=== PATIENT | female | born 1990 | race Caucasian/White ===

== ENCOUNTER → 2017-04-11 | Outpatient (CLI) | payer OTHER ==
[~2017-04-11] MED LIST: COLA100C5 PO; FERR325T3 PO; PRENTAB9 PO
--- NOTE | 2017-04-11 14:40 | REP ---
LEFT BREAST ULTRASOUND: Real-time sonographic evaluation of left breast performed. Reportedly, the patient has had a palpable abnormality in the left axillary tail region. Reportedly, she has had an ultrasound in [place] approximately 6 months ago, but that study is unavailable for comparison. In the left axillary tail region, there is dense fibroglandular tissue. There are a few mildly dilated ducts near the nipple. There is a lymph node in the left axillary tail with an echogenic hilum. This measures 1.8 x 0.7 x 0.9 cm. No other cystic or solid nodule is seen. IMPRESSION: ACR 3 probably benign. In the left axillary tail, there appears to be a lymph node 1.8 x 0.7 x 0.9 cm. This is probably benign. Recommend followup ultrasound in 6 months. Signed by Guido Hyatt MD 04/11/2017 03:18 P
== END ==
LOC: M RAD 10:29
PROVIDERS: ATTEND Midwife
DX: O26.92 Pregnancy related conditions, unspecified, second trimester (principal); N63 Unspecified lump in breast; Z3A.23 23 weeks gestation of pregnancy

== ENCOUNTER 2017-06-12 18:00 | Outpatient (CLI) | payer OTHER ==
[~2017-06-12] VITALS: Ht 165.1 cm; Wt 101.0 kg
[2017-06-12] MEDS ORDERED: FERR325T3 PO (18:25)
[2017-06-12] MEDS ORDERED: PRENTAB9 PO (18:25)
[2017-06-12] MEDS ORDERED: COLA100C5 PO (18:25)
[2017-06-12 18:31] VITALS: BP 96/56
[2017-06-12 19:25] LABS: MEAN CORPUSCULAR HGB CONC 33.2 g/dl (32.0-36.5); MEAN CORPUSCULAR VOLUME 87.3 fl (80.0-96.0); PLATELET COUNT, AUTOMATED 291 10^3/uL (150-450); RED CELL DISTRIBUTION WIDTH 14.4 % (11.5-14.5); WHITE BLOOD COUNT 12.4 10^3/uL (4.0-10.0)
[2017-06-12 19:54] LABS: ALBUMIN 2.6 GM/DL (3.2-5.2); ALKALINE PHOSPHATASE 114 U/L (45-117); ALT/SGPT 15 U/L (12-78); AMYLASE 74 U/L (25-115); ANION GAP 9 MEQ/L (8-16); AST/SGOT 12 U/L (15-37); BILIRUBIN,TOTAL 0.2 MG/DL (0.2-1.0); BLOOD UREA NITROGEN 5 MG/DL (7-18); CALCIUM LEVEL 8.6 MG/DL (8.5-10.1); CARBON DIOXIDE LEVEL 24 MEQ/L (21-32); CHLORIDE LEVEL 107 MEQ/L (98-107); CREATININE FOR GFR 0.43 MG/DL (0.55-1.02); GLOMERULAR FILTRATION RATE > 60.0 (>60); GLUCOSE, FASTING 94 MG/DL (70-105); POTASSIUM SERUM 3.7 MEQ/L (3.5-5.1); SODIUM LEVEL 140 MEQ/L (136-145); TOTAL PROTEIN 6.3 GM/DL (6.4-8.2)
== END 2017-06-12 20:20 | disposition home or self-care (01) ==
LOC: M LDO 18:00
PROVIDERS: ATTEND Obstetrics & Gynecology
DX: O26.899 Other specified pregnancy related conditions, unspecified trimester (principal); M54.9 Dorsalgia, unspecified; R10.9 Unspecified abdominal pain; Z3A.33 33 weeks gestation of pregnancy

== ENCOUNTER 2017-07-04 18:33 | Outpatient (CLI) | payer OTHER ==
[~2017-07-04] VITALS: Ht 165.1 cm; Wt 108.5 kg
[2017-07-04 18:53] VITALS: BP 115/62
--- NOTE | 2017-07-05 01:20 | IPNPDOC ---
Text Note Date of Service The patient was seen on 07/05/17. NOTE Saba is a 26yo with SIUP at 36w1d presenting for loss of fluid. She states that earlier in the night she had an episode of clear leaking of fluid from her vagina. The leaking did not continue, but did "soak the underwear and pants and sofa". She notes good movement. She feels regular ctx. No vaginal bleeding. No fevers/chills. 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 Reassuring status with normal vital signs. Plan: -Discharge to home -Keep next scheduled OB appt Jul at 38wk -Discussed return precautions Dr. Mariangel Cevallos MD [facility] VS,Kevin, I+O VSKevin, I+O Vital Signs Date Time Temp Pulse Resp B/P (MAP) Pulse Ox O2 Delivery O2 Flow Rate FiO2 07/04/17 18:53 99.0 114 18 115/62 (79) Mariangel Cevallos MD Jul 05, 2017 01:20
== END 2017-07-05 01:10 | disposition home or self-care (01) ==
LOC: M LDO 18:33
PROVIDERS: ATTEND Obstetrics & Gynecology
DX: O47.03 False labor before 37 completed weeks of gestation, third trimester (principal); Z3A.36 36 weeks gestation of pregnancy; N89.8 Other specified noninflammatory disorders of vagina; O26.893 Other specified pregnancy related conditions, third trimester

== ENCOUNTER 2017-07-08 22:45 | Outpatient (CLI) | payer OTHER ==
[~2017-07-08] VITALS: Ht 165.1 cm; Wt 106.5 kg
[2017-07-08 23:05] VITALS: BP 127/74
--- NOTE | 2017-07-09 00:24 | IPNPDOC ---
Text Note Date of Service The patient was seen on 07/09/17. NOTE Saba is a 26yo with SIUP at 36w6d who presents for contractions. She states she was feeling them stronger earlier today, but now they seem to have spaced out and are not quite as strong. No LOF, No VB, feels good movement currently. 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 Vitals wnl. Reassuring status. Plan: -Routine OB care, keep next scheduled visit -Discussed return precautions -Safe for discharge Dr. Mariangel Cevallos MD [facility] VS,Kevin, I+O VS, Kevin, I+O Vital Signs Date Time Temp Pulse Resp B/P (MAP) Pulse Ox O2 Delivery O2 Flow Rate FiO2 07/08/17 23:05 99.0 103 18 127/74 (91) Mariangel Cevallos MD Jul 09, 2017 00:24
== END 2017-07-09 00:27 | disposition home or self-care (01) ==
LOC: M LDO 22:45
PROVIDERS: ATTEND Obstetrics & Gynecology
DX: O47.03 False labor before 37 completed weeks of gestation, third trimester (principal); Z3A.36 36 weeks gestation of pregnancy; O36.8130 Decreased fetal movements, third trimester, not applicable or unspecified

== ENCOUNTER 2017-07-12 20:54 | Outpatient (CLI) | payer OTHER ==
--- NOTE | 2017-07-13 01:25 | IPNPDOC ---
Text Note Date of Service The patient was seen on 07/12/17. NOTE Saba is a 26yo with SIUP at 37w3d presenting for loss of fluid. She states that earlier in the night she had an episode of clear leaking of fluid from her vagina. The leaking did not continue, but did "soak the underwear and pants and socks and shoes." Notably, she was seen in triage on June 03 for similar episode with negative workup and then on 08 July she presented for negative labor check. She notes good movement. She feels irregular ctx. No vaginal bleeding. No fevers/chills. 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 Reassuring status with normal vital signs. Plan: -Discharge to home -urine was concentrated: patient strongly counseled to increase hydration -Keep next scheduled OB appt Jul at 38wk -Discussed return precautions MD Aylin Vasquez Katrina D MD Jul 13, 2017 01:25
== END 2017-07-12 22:00 | disposition home or self-care (01) ==
LOC: M LDO 20:54
PROVIDERS: ATTEND Obstetrics & Gynecology
DX: O47.1 False labor at or after 37 completed weeks of gestation (principal); Z3A.37 37 weeks gestation of pregnancy; N89.8 Other specified noninflammatory disorders of vagina; O26.893 Other specified pregnancy related conditions, third trimester

== ENCOUNTER 2017-08-02 09:39 | Inpatient (IN) | payer OTHER ==
[~2017-08-02] VITALS: Ht 165.1 cm; Wt 109.9 kg
[2017-08-02] VITALS (22 sets, daily range): BP systolic 101–134; BP diastolic 60–85
[2017-08-02] MEDS ORDERED: ACET50TA PO (10:08)
[2017-08-02] MEDS ORDERED: LACTATED RINGER'S 1000 ML IV STA (12:42)
[2017-08-02] MEDS ORDERED: LR 1,000 ML IV SCH (12:42)
[2017-08-02 13:25] LABS: MEAN CORPUSCULAR HGB CONC 32.8 g/dl (32.0-36.5); MEAN CORPUSCULAR VOLUME 85.2 fl (80.0-96.0); PLATELET COUNT, AUTOMATED 361 10^3/uL (150-450); RED CELL DISTRIBUTION WIDTH 14.9 % (11.5-14.5); WHITE BLOOD COUNT 16.2 10^3/uL (4.0-10.0)
[2017-08-02] MEDS ORDERED: FENTANYL 2MCG/ML ROPIVACAINE 0.2% IN 0.9% NACL 200ML IVBAG As Ordered ONE (14:15)
[2017-08-02] MEDS ORDERED: REFRIGERATOR IV KEYS XX PRN (16:00)
[2017-08-02] MEDS ORDERED: ONDANSETRON 4MG/2ML VIAL (J2405) IV PRN (16:00)
[2017-08-02] MEDS ORDERED: NALOXONE INJ 0.4 MG/1 ML VIAL (J2310) IV PRN (16:00)
[2017-08-02] MEDS ORDERED: LACTATED RINGER'S 1000 ML IV PRN (16:00)
[2017-08-02] MEDS ORDERED: EPIDURAL COMMENT XX SCH (16:00)
[2017-08-02] MEDS ORDERED: ePHEDrine SULFATE 25 MG/5 ML(5MG/ML) SYRINGE IV PRN (16:00)
[2017-08-02] MEDS ORDERED: FENTANYL/ROPIVACAINE/NACL BAG 200 ML EPIDURAL SCH (16:00)
[2017-08-02] MEDS ORDERED: diphenhydrAMINE INJ 50MG/ML VIAL (J1200) IV PRN (16:00)
[2017-08-02] MEDS ORDERED: EPIDURAL/PCA KEYS XX PRN (16:00)
--- NOTE | 2017-08-02 16:57 | HPEPDOC ---
Obstetrical History & Physical General Date of Admission Aug 02, 2017 at 12:43 History of Present Illness ADMITTED ~3-4 HRS AGO 26 Y/O at 40+2 with reg painful ctx's. Checked and was 3 cm, kept and rechecked 2 hrs later at ~1230, found to 4-5/90/-2/vtx. Has since been admitted and obtained an epidural. Problem list: h/o depression, states feeling great now, no meds currently Smoking 3 cigs/day anemia-Fe/Colace Chief Complaint: Contractions, term Information Provided By: Patient Care Care: Good Care Dating Final EDC by: LMP, 1st trimester (US) Past Medical History Past Obstetrical History : Past Obstetrical History: Multigravida Type of Delivery: Spontaneous Vaginal Del. 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 Past Medical History Medical History migraines-none for several months asthma, mild-no meds Surgical History: Tonsilectomy, [place] teeth Family History Significant Family History: No pertinent family hx Social History Marital Status: Family situation: Spouse/partner home Psychosocial History: No pertinent psych hx * Smoker: current smoker Alcohol: Denies Drugs: denies Abuse Violence Screening Have you been hit/kicked/slapp: No Have you been sexually assault: No Imunizations Tdap status: current Influenza Status: declined Allergies Coded Allergies: No Known Drug Allergy (Unverified Allergy, Unknown, 06/12/17) Medications Scheduled Docusate Sodium (Colace) 100 Mg Cap, 100 MG PO TID Ferrous Sulfate (Ferrous Sulfate) 325 Mg Tab, 325 MG PO TID Multivitamins/ ( 27-0.8 mg) 1 Tab Tab, 1 TAB PO DAILY Miscellaneous Medications Acetaminophen (Mapap) 500 Mg Tab, 1,000 MG PO Physical Examination Physical Examination GENERAL: Alert and oriented times three. BREAST: . ABDOMEN: Gravid and non-tender to touch. FETUS: Is vertex (VTX) by sterile vaginal examination (SVE), Cx 4-5/90. HEART RATE: Regular rate and rhythm. LUNGS: Clear to auscultation (CTA). EXTREMITIES: No edema. Vital Signs/I&O Vital Signs Date Time Temp Pulse Resp B/P (MAP) Pulse Ox O2 Delivery O2 Flow Rate FiO2 08/02/17 12:25 98.7 100 122/72 (89) 08/02/17 09:57 22 Laboratory Data 24H LABS Laboratory Tests 2 08/02/17 12:46: Serology Scanned Report Hepatitis B Testing 08/02/17 13:13: Urine Amphetamines Screen NEGATIVE, Urine Benzodiazepines Screen NEGATIVE, Urine Opiates Screen NEGATIVE, Urine Methadone Screen NEGATIVE, Urine Barbiturates Screen NEGATIVE, Urine Phencyclidine Screen NEGATIVE, Urine Cocaine Metabolite Screen NEGATIVE, Urine Cannabinoids Screen NEGATIVE 08/02/17 13:21: Nucleated Red Blood Cells % (auto) 0.0, Syphilis Serology NONREACTIVE CBC/BMP Laboratory Tests 08/02/17 13:21 Red Blood Count 4.47, Mean Corpuscular Volume 85.2, Mean Corpuscular Hemoglobin 28.0, Mean Corpuscular Hemoglobin Concent 32.8, Red Cell Distribution Width 14.9 H Urine Culture: Contaminated Pertinent Laboratoy Data Blood Type: O+ RBC Antibody Screen: Negative HIV: Negative Hepatitis B: Negative Hepatitis C: Unknown Rapid Plasma Reagin: Nonreactive Rubella: Immune Varicella: Immune Chlamydia/Gonorrhea: Negative Group B Streptococcus: Negative Quad Screen Test: Declined Cystic Fibrosis: Declined Glucose Tolerance Test: 106 Anatomy Ultrasound Placenta Location: Posterior Normal Anatomy: Yes Vaginal Examination Dilation: 4 cm Effacement: 80+% Station: -2 Cervical Consistency: Soft Cervical Position: Middle Presentation: Cephalic presentation Assessment Variability: Moderate Accelerations: Positive Decelerations: None Tocometer Contractions: Yes Frequency: regular Duration: less than 60 seconds Strength: palpated as strong Assessment/Plan Assessment Term in active labor. Plan Admit and orient. 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 Diet: clrs Group B Streptococcus (GBS) neg Labs and intravenous (IV) per unit protocol. Counseled on Pitocin and induction of labor (IOL). Lactated Ringers (LR): Bolus 1000 mL, then at 125 mL/hr. Anticipate normal spontaneous delivery (). C-S as appropriate. MICHEAL THAKUR MD Aug 02, 2017 16:57
--- NOTE | 2017-08-02 17:06 | IPNPDOC ---
Text Note Date of Service The patient was seen on 08/02/17. NOTE Now s/p epidural, feeling well NST Cat 1, reg ctx's Cx 7/100/0, AROM with mec stained fluid Will notify NICU doc to be present for del recheck in 2 hrs, sooner prn Sessions VS,Kevin, I+O VSKevin, I+O Laboratory Tests 08/02/17 13:21 Red Blood Count 4.47, Mean Corpuscular Volume 85.2, Mean Corpuscular Hemoglobin 28.0, Mean Corpuscular Hemoglobin Concent 32.8, Red Cell Distribution Width 14.9 H Vital Signs Date Time Temp Pulse Resp B/P (MAP) Pulse Ox O2 Delivery O2 Flow Rate FiO2 08/02/17 12:25 98.7 100 122/72 (89) 08/02/17 09:57 22 SESSIONS,MICHEAL Thomson MD Aug 02, 2017 17:06
--- NOTE | 2017-08-02 19:09 | IPNPDOC ---
Text Note Date of Service The patient was seen on 08/02/17. NOTE NST Cat 1 pain controlled Cx AL/100/+1 Doing well. F/U check in 1 hr, sooner prn. Sessions VSKevin, I+O VSKevin I+O Laboratory Tests 08/02/17 13:21 Red Blood Count 4.47, Mean Corpuscular Volume 85.2, Mean Corpuscular Hemoglobin 28.0, Mean Corpuscular Hemoglobin Concent 32.8, Red Cell Distribution Width 14.9 H Vital Signs Date Time Temp Pulse Resp B/P (MAP) Pulse Ox O2 Delivery O2 Flow Rate FiO2 08/02/17 16:57 85 108/61 (77) 08/02/17 12:25 98.7 08/02/17 09:57 22 I&O- Last 24 Hours up to 6 AM 08/03/17 06:00 Intake Total 2600 ml Output Total 350 ml Balance 2250 ml MICHEAL THAKUR MD Aug 02, 2017 19:09
[2017-08-02] MEDS ORDERED: OXYTOCIN 30 UNITS IN 0.9% NaCl 500ML IV BAG (J2590) As Ordered ONE (19:41)
[2017-08-02] MEDS ORDERED: OXYTOCIN DRIP 30 UNITS in APPROPRIATE DILUENT 1 EA IV SCH (21:45)
[2017-08-02] MEDS ORDERED: MEASLES,MUMPS,RUBELLA VACCINE INJ (MMR-II) (90707) SC SCH (21:45)
[2017-08-02] MEDS ORDERED: DIBUCAINE 1% OINTMENT 30GM TOP PRN (21:45)
[2017-08-02] MEDS ORDERED: METOCLOPRAMIDE INJ 10MG/2ML VIAL (J2765) IV PRN (21:45)
[2017-08-02] MEDS ORDERED: RHOGAM 300 MCG (1500 IU) INJ (J2790) IM SCH (21:45)
--- NOTE | 2017-08-02 21:56 | DNPDOC ---
[facility] Delivery Note Delivery Note DATE OF DELIVERY: [id number] PREDELIVERY DIAGNOSIS: 40 2/7 weeks' gestation and labor. POST DELIVERY DIAGNOSIS: Delivered. PROCEDURE: Spontaneous vaginal delivery CMM INSPECTOR: Dr. Thakur ANESTHESIA: epidural ESTIMATED BLOOD LOSS: 300 mL. FINDINGS: 10 pound 9 ounce male infant, Score 8/9 DELIVERY SUMMARY: Called to room, . Great effort. Obviously macrosomic . Right anterior shoulder with compound right arm. No delay of the vtx or the ant shoulder. To abd, good tone/cry. Cord C/C by FOB. Cord blood. Placenta intact. Fundal massage and pitocin going, firm. 3-0 vicryl used to rpr a 1st degr perineal lac. Good cosmesis/hemostasis. Sessions MD THAKUR,MICHEAL Thomson MD Aug 02, 2017 21:56
[2017-08-03 00:13] VITALS: BP 126/61
[2017-08-03] MEDS: IBUPROFEN 800 MG TAB PO PRN ×2 (00:36→09:06)
[2017-08-03] MEDS: ACETAMINOPHEN TAB 650MG DOSE (2X325MG) PO PRN ×2 (05:50→16:49)
[2017-08-03 06:19] VITALS: BP 120/69
[2017-08-03] MEDS: PRENATAL VITAMINS CHEWABLE TABLET PO SCH (09:06)
[2017-08-03] MEDS: DOCUSATE SODIUM 100 MG CAP PO SCH ×2 (09:06→21:29)
[2017-08-03 18:12] VITALS: BP 123/63
[2017-08-04] MEDS: IBUPROFEN 800 MG TAB PO PRN (01:17)
[2017-08-04 06:05] VITALS: BP 111/73
[2017-08-04] MEDS: DOCUSATE SODIUM 100 MG CAP PO SCH (08:10)
[2017-08-04] MEDS: PRENATAL VITAMINS CHEWABLE TABLET PO SCH (08:10)
[2017-08-04] MEDS: ACETAMINOPHEN TAB 650MG DOSE (2X325MG) PO PRN (08:10)
[2017-08-04] MEDS ORDERED: IBUP-1114 PO (08:58)
== END 2017-08-04 11:40 | disposition home or self-care (01) | DRG 775 ==
LOC: M LDO 09:39 → M LDI 12:43 → M OBS 23:59
PROVIDERS: ADMIT Obstetrics & Gynecology; ATTEND Obstetrics & Gynecology
PROC: 10E0XZZ Delivery of Products of Conception, External Approach (ICD-10-PCS; principal; 2017-08-02)
PROC: 0HQ9XZZ Repair Perineum Skin, External Approach (ICD-10-PCS; 2017-08-02)
DX: O48.0 Post-term pregnancy (principal); Z37.0 Single live birth; Z3A.40 40 weeks gestation of pregnancy; F17.210 Nicotine dependence, cigarettes, uncomplicated; O99.334 Smoking (tobacco) complicating childbirth; O70.0 First degree perineal laceration during delivery; O36.63X0 Maternal care for excessive fetal growth, third trimester, not applicable or unspecified

== ENCOUNTER 2018-03-06 21:27 | Emergency (ER) | payer OTHER ==
[2018-03-06] MEDS: ONDANSETRON 4MG/2ML VIAL (J2405) IV (23:12)
[2018-03-06] MEDS: KETOROLAC 30 MG/ML VIAL (J1885) IV (23:14)
[2018-03-06] MEDS: MAGNESIUM CITRATE 300 ML BTL PO (23:16)
== END 2018-03-06 23:23 | disposition home or self-care (01) ==
LOC: M ED 21:27
DX: K59.00 Constipation, unspecified (principal); F17.210 Nicotine dependence, cigarettes, uncomplicated
CPT/HCPCS: J2405

== ENCOUNTER 2018-04-30 17:52 | Emergency (ER) | payer OTHER ==
[2018-04-30] MEDS: NORCO, ANEXSIA 5/325MG TABLET (HYDROcodone/ACETAMINOPHEN) PO (20:45)
== END 2018-04-30 20:53 | disposition home or self-care (01) ==
LOC: M ED 17:52
DX: S92.531A Displaced fracture of distal phalanx of right lesser toe(s), initial encounter for closed fracture (principal); W22.8XXA Striking against or struck by other objects, initial encounter; Y92.099 Unspecified place in other non-institutional residence as the place of occurrence of the external cause; Y93.9 Activity, unspecified; Y99.9 Unspecified external cause status; J45.909 Unspecified asthma, uncomplicated; K42.9 Umbilical hernia without obstruction or gangrene; Z72.0 Tobacco use; Z79.3 Long term (current) use of hormonal contraceptives; Z79.899 Other long term (current) drug therapy
CPT/HCPCS: 73660

== ENCOUNTER → 2018-05-15 | Outpatient (REF) | payer OTHER | LOC: M SFHCLERA 12:52 | DX: R53.81 Other malaise (principal) ==

== ENCOUNTER → 2018-07-18 | Outpatient (REF) | payer OTHER | LOC: M SFHCLERA 11:37 | DX: J02.9 Acute pharyngitis, unspecified (principal) ==

== ENCOUNTER 2018-07-19 11:50 | Emergency (ER) | payer OTHER | END 2018-07-19 12:43 | disposition home or self-care (01) | LOC: M ED 11:50 | DX: B08.5 Enteroviral vesicular pharyngitis (principal); F17.210 Nicotine dependence, cigarettes, uncomplicated; Z91.040 Latex allergy status | CPT/HCPCS: 87880 ==

== ENCOUNTER 2019-04-27 13:05 | Emergency (ER) | payer OTHER ==
[~2019-04-27] VITALS: Ht 165.1 cm; Wt 86.4 kg
[~2019-04-27 13:05] MED LIST changes: +IBUP-1022 PO; +IBUP-1114 PO; +KETO10TAB PO; +MAGICMW MT; +MAPA500T2 PO; +MIRE1IUD; +OXYC-517; +RALTEGRAVIR 400 MG TAB (ISENTRESS) PO SCH
[2019-04-27 15:39] LABS: BASO # 0.1 10^3/uL (0.0-0.2); EOS % 0.3 % (0.0-3.0); HEMATOCRIT 42.8 % (36.0-47.0); HEMOGLOBIN 14.2 g/dl (12.0-15.5); LYMPH # 2.8 10^3/uL (1.5-5.0); LYMPH % 28.2 % (24.0-44.0); MEAN CORPUSCULAR HEMOGLOBIN 29.6 pg (27.0-33.0); MEAN CORPUSCULAR HGB CONC 33.2 g/dl (32.0-36.5); MEAN CORPUSCULAR VOLUME 89.4 fl (80.0-96.0); MONO # 0.5 10^3/uL (0.0-0.8); MONO % 5.1 % (0.0-5.0); NEUTROPHILS # 6.4 10^3/uL (1.5-8.5); PLATELET COUNT, AUTOMATED 286 10^3/uL (150-450); RED BLOOD COUNT 4.79 10^6/uL (4.00-5.40); WHITE BLOOD COUNT 9.8 10^3/uL (4.0-10.0)
[2019-04-27 16:07] LABS: ALBUMIN 4.3 GM/DL (3.2-5.2); ALT/SGPT 17 U/L (12-78); BILIRUBIN,TOTAL 0.7 MG/DL (0.2-1.0); BLOOD UREA NITROGEN 13 MG/DL (7-18); CALCIUM LEVEL 9.2 MG/DL (8.5-10.1); CARBON DIOXIDE LEVEL 25 MEQ/L (21-32); CHLORIDE LEVEL 107 MEQ/L (98-107); CREATININE FOR GFR 0.72 MG/DL (0.55-1.30); GLOMERULAR FILTRATION RATE > 60.0 (>60); GLUCOSE, FASTING 82 MG/DL (70-100); POTASSIUM SERUM 3.7 MEQ/L (3.5-5.1); SODIUM LEVEL 142 MEQ/L (136-145); TOTAL PROTEIN 7.5 GM/DL (6.4-8.2)
[2019-04-27 16:22] LABS: HCG, SERUM QUALITATIVE NEGATIVE (NEGATIVE)
[2019-04-27 16:38] LABS: HEPATITIS B SURFACE ANTIBODY NEGATIVE (POSITIVE)
[2019-04-27 16:49] LABS: HEPATITIS B SURFACE ANTIGEN NEGATIVE (NEGATIVE)
[2019-04-27] MEDS ORDERED: EXPOSURE KIT-ADULT 7 DAY SUPPLY PO ONE (17:00)
[2019-04-27] MEDS ORDERED: AZITHROMYCIN 250 MG TAB PO ONE (17:00)
[2019-04-27] MEDS ORDERED: metroNIDAZOLE (FLAGYL) 500 MG TAB PO ONE (17:00)
[2019-04-27] MEDS ORDERED: ADACEL/BOOSTRIX VACCINE (DIPHTH/PERTUSS/ACELL/TETANUS)0.5ML SYR (90715) IM ONE (17:00)
[2019-04-27] MEDS ORDERED: cefTRIAXone SOD 250 MG VIAL (J0696) IM ONE (17:00)
[2019-04-27] MEDS ORDERED: LIDOCAINE 1% SDV 5 ML VIAL DILUENT ONE (17:00)
[2019-04-27] MEDS ORDERED: ULIPRISTAL ACETATE 30 MG TAB (ELLA) PO ONE (17:00)
[2019-04-27 17:17] LABS: HIV 1&2 SCREEN CENTAUR NEGATIVE (NEGATIVE)
[2019-04-27] MEDS ORDERED: RALT40TA PO ×2 (17:50→18:57)
[2019-04-27] MEDS ORDERED: TRUVTAB PO ×2 (17:50→18:57)
[2019-04-27] MEDS ORDERED: ONDANSETRON 4 MG ORAL DISINTEGRATING TAB (Q0162 PER 1MG) PO ONE (18:30)
[2019-04-27 19:13] VITALS: BP 119/72
[2019-04-28] MEDS ORDERED: TRUVADA 200MG/300MG TABLET PO SCH
== END 2019-04-27 19:43 | disposition home or self-care (01) ==
LOC: M ED 13:05 → EEVIPCON 13:05 → M ED 19:43
DX: T76.21XA Adult sexual abuse, suspected, initial encounter (principal); Z91.040 Latex allergy status
CPT/HCPCS: 36415; 80053; 84703; 85025; 86706; 86780; 86803; 87340; 87389; 90471; 90715; 96372; 99284; J0696; Q0162

== ENCOUNTER 2019-05-23 20:43 | Emergency (ER) | payer OTHER ==
[~2019-05-23] VITALS: Ht 165.1 cm; Wt 88.6 kg
[~2019-05-23 20:43] MED LIST changes: +RALT40TA PO; -RALTEGRAVIR 400 MG TAB (ISENTRESS) PO SCH; +TRUVTAB PO
[2019-05-23] MEDS ORDERED: NORCO, ANEXSIA 5/325MG TABLET (HYDROcodone/ACETAMINOPHEN) PO ONE (21:30)
--- NOTE | 2019-05-23 22:38 | REPVR ---
PROCEDURE INFORMATION: Exam: US Abdomen Limited Exam date and time: 05/23/2019 9:47 PM Clinical history: 28 years old, female; Abdominal pain; Other: Umbilical; Prior surgery; Surgery date: 6+ months; Surgery type: Hernia repair; Additional info: Umbilical pain, hernia c mesh 2018 TECHNIQUE: Imaging protocol: Real-time ultrasound of the abdomen with image documentation. Examination is focused on the region of clinical interest. COMPARISON: No relevant prior studies available. FINDINGS: No abnormal fluid collection or hematoma. No evidence of an umbilical or abdominal wall hernia. No mass or adenopathy. IMPRESSION: No evidence of abdominal wall hernia or abnormal fluid collection Electronically signed by: Walker Aviles On 05/23/2019 22:38:44 PM
[2019-05-23] MEDS ORDERED: NORC1TAB7 PO (22:48)
[2019-05-23 22:58] VITALS: BP 132/74
== END 2019-05-23 22:59 | disposition home or self-care (01) ==
LOC: M ED 20:43
DX: R10.33 Periumbilical pain (principal); R11.0 Nausea; Z87.19 Personal history of other diseases of the digestive system; M54.5 Low back pain; G89.29 Other chronic pain; F17.210 Nicotine dependence, cigarettes, uncomplicated; Z91.040 Latex allergy status